=== PATIENT | female | born 1980 | race Native Hawaiian/Other Pacific Islander ===

== ENCOUNTER 2016-11-01 08:12 | Outpatient (CLI) | payer BC | END 2016-11-01 19:05 | disposition home or self-care (01) | LOC: RESP 08:12 | DX: R06.02 Shortness of breath (principal) ==

== ENCOUNTER 2016-11-13 13:56 | Outpatient (CLI) | payer BC | END 2016-11-13 15:00 | disposition home or self-care (01) | LOC: RESP 13:56 | DX: Q25.72 Congenital pulmonary arteriovenous malformation (principal) ==